=== PATIENT | female | born 1955 ===

== ENCOUNTER 2022-08-31 10:55 | Inpatient (IN) | payer MEDICARE, OTHER ==
[2022-08-31 11:23] LABS: #Monocytes 1.1 thou/uL (0.11-0.59); #Neutrophils 15.4 thou/uL (1.40-6.50); %Basophils 0.2 % (0.0-1.0); %Eosinophils 0.1 % (0.0-10.0); %Monocytes 6.3 % (0.0-10.0); %Neutrophils 90.6 % (42.0-75.0); Hemoglobin 9.4 g/dL (12.0-16.0); Mean Corpuscular HGB CONC 31.6 g/dL (32.0-36.0); Mean Corpuscular Hemoglobin 30.5 pg (27.0-31.0); Mean Corpuscular Volume 96.4 fl (78.0-98.0); Mean Platelet Volume 9.7 fL (7.4-10.4); Platelet Count 231 10x3/uL (130-400); RBC Distribution Width 15.2 % (11.5-14.5); Red Blood Cell (RBC) Count 3.08 mill/uL (4.20-5.40)
[2022-08-31 11:49] LABS: ALT (SGPT) 17 U/L (8-55); AST (SGOT) 26 U/L (5-34); Acetaminophen Less than 10 mcg/mL (10.0-30.0); Albumin 3.1 g/dL (3.4-4.8); Alcohol Less than 10.0 mg/dL (Less than 10); Alkaline Phosphatase 157 U/L (40-110); Anion Gap 17 mmol/L (10-20); BUN (Urea Nitrogen) 22 mg/dL (9.8-20.1); Bilirubin, Total 0.4 mg/dL (0.2-1.2); CK (CPK) 124 U/L (29-168); Calc. Creatinine Clearance 0 mL/min (70-130); Calcium 8.3 mg/dL (7.8-10.44); Carbon Dioxide 20 mmol/L (23-31); Chloride 96 mmol/L (98-107); Estimated GFR 92; Globulin 2.6 g/dL (2.4-3.5); Glucose 76 mg/dL (80-115); Lipase 8 U/L (8-78); Potassium 4.2 mmol/L (3.5-5.1); Protein, Total 5.7 g/dL (5.8-8.1); Salicylate Less than 8.0 mg/dL (15.0-30.0); Sodium 129 mmol/L (136-145)
[2022-08-31 13:06] LABS: Amphetamine Not Detected (NotDetected); Barbiturates Screen Not Detected (NotDetected); Benzodiazepine Screen Not Detected (NotDetected); Cocaine Metabolite Screen Not Detected (NotDetected); Methadone Not Detected (NotDetected); Methamphetamine Not Detected (NotDetected); Opiate Screen Detected (NotDetected); Oxycodone Screen Not Detected (NotDetected); Phencyclidine (PCP) Not Detected (NotDetected); THC/Cannabinoid Screen Not Detected (NotDetected); Tricyclic Screen Not Detected (NotDetected)
[2022-08-31 13:13] LABS: Bilirubin Negative (Negative); Blood, Urine 2+ (Negative); CAUTI Indications for Culture Alt mental st,lethar; Clarity Extra Turbid (Clear); Glucose, Urine (Dipstick) Normal (Negative); Ketone, Urine Negative (Negative); Leukocyte 500 Leu/uL (Negative); Nitrite 2+ (Negative); Protein, Urine (Dipstick) 50 mg/dL (Neg-Trace); Squamous Epithelial None Seen HPF (0-3); Urobilinogen 3 mg/dL (Less than 2); WBC/HPF Greater than 50 HPF (0-3); pH, Urine 6.5 (5.0-9.0)
[2022-08-31 13:14] LABS: Bacteria/HPF 4+ HPF (None Seen)
[2022-08-31 13:15] LABS: Urine Culture Reflex Yes Yes
[2022-08-31] MEDS ORDERED: cefTRIAXone (ROCEPHIN) 2 GM VIAL ONE (13:43)
[2022-08-31] MEDS ORDERED: Vancomycin 1 GM/200 ML (FROZEN) BAG ONE (13:43)
[2022-08-31] MEDS ORDERED: Acetaminophen 650 MG Suppository ONE (15:55)
[2022-08-31] MEDS ORDERED: HYDROcodone/Acetaminophen 10/325 mg Tablet PO PRN (17:10)
[2022-08-31] MEDS: Lactated Ringer's 1,000 ML IV SCH (17:48)
[2022-08-31] MEDS: Nicotine 7 MG PATCH TOP SCH (17:48)
[2022-08-31] MEDS: Ipratropium Bromide 2.5 ml Neb NEB SCH (18:54)
[2022-08-31] MEDS: Mometasone 200 MCG/Formoterol 5 MCG 120 PUFF INHALER INH SCH (18:57)
[2022-08-31] MEDS ORDERED: Lactated Ringer's 500 ML IV SCH ×2 (19:45→23:45)
[2022-08-31 20:13] LABS: Anion Gap 13 mmol/L (10-20); BUN (Urea Nitrogen) 20 mg/dL (9.8-20.1); Calc. Creatinine Clearance 53 mL/min (70-130); Calcium 8.1 mg/dL (7.8-10.44); Carbon Dioxide 19 mmol/L (23-31); Chloride 103 mmol/L (98-107); Estimated GFR 95; Glucose 69 mg/dL (80-115); Magnesium 1.3 mg/dL (1.6-2.6); Phosphorus 2.1 mg/dL (2.3-4.7); Sodium 132 mmol/L (136-145)
[2022-08-31] MEDS ORDERED: Digoxin 0.5 MG/2 ML AMP SLOW IVP SCH (20:45)
[2022-08-31] MEDS ORDERED: Potassium Chloride 20 MEQ TAB PO SCH (21:45)
[2022-08-31] MEDS ORDERED: Magnesium 2 GM/50 ML(in water) 2 GM in Premix Bag 1 BAG IVPB SCH (21:45)
[2022-08-31] MEDS ORDERED: PHOS-NAK 1 PKT PACK PO SCH (21:45)
[2022-08-31 21:47] LABS: Troponin I 0.075 ng/mL (< 0.028)
[2022-08-31] MEDS: Benzonatate 100 MG CAP PO SCH (21:57)
[2022-08-31] MEDS: Acetaminophen 325 MG TAB PO PRN (21:58)
[2022-08-31] MEDS: Apixaban 5 MG TAB PO SCH (21:58)
[2022-08-31] MEDS: traZODone HCl 50 MG TAB PO SCH (21:58)
[2022-08-31] MEDS: Famotidine 20 MG TAB PO SCH (21:58)
[2022-08-31] MEDS: Ondansetron ODT 4 MG TAB PO SCH (21:58)
[2022-08-31] MEDS: tiZANidine HCl 4 MG TAB PO SCH (21:59)
[2022-08-31] MEDS: Potassium Chloride 20 MEQ in Premix Bag 1 BAG IVPB SCH (22:06)
[2022-08-31] MEDS: Bupropion 150 MG SR TAB PO SCH (22:57)
[2022-08-31] MEDS: Morphine ER 15 MG TAB PO SCH (22:57)
[2022-08-31 23:57] VITALS: BP 76/48
[2022-09-01] MEDS: Lactated Ringer's 1,000 ML IV SCH ×4 (00:08→21:19)
[2022-09-01] MEDS ORDERED: Electrolyte Replacement Protocol 1 EACH FS PRN (00:13)
[2022-09-01] MEDS ORDERED: NOREPINEPHRINE 8 MG/250 ML-D5W 250 ML IVPB SCH (00:15)
[2022-09-01] MEDS ORDERED: Magnesium 2 GM/50 ML(in water) 2 GM in Premix Bag 1 BAG IVPB SCH (00:30)
[2022-09-01] MEDS ORDERED: Cefepime 2 GM in Sodium Chloride 0.9% 100 ML IVPB SCH (01:00)
[2022-09-01] MEDS ORDERED: Lactated Ringer's 500 ML IV SCH ×2 (01:15→02:45)
[2022-09-01] MEDS: Ipratropium Bromide 2.5 ml Neb NEB SCH ×4 (01:39→18:19)
[2022-09-01] MEDS: Potassium Chloride 20 MEQ in Premix Bag 1 BAG IVPB SCH (02:09)
[2022-09-01] MEDS ORDERED: Lactated Ringer's 1,000 ML IV SCH (02:45)
[2022-09-01 02:56] LABS: #Monocytes 0.7 thou/uL (0.11-0.59); #Neutrophils 14.1 thou/uL (1.40-6.50); %Basophils 0.2 % (0.0-1.0); %Eosinophils 0.1 % (0.0-10.0); %Lymphocytes 2.4 % (21.0-51.0); %Monocytes 4.4 % (0.0-10.0); %Neutrophils 92.4 % (42.0-75.0); Hemoglobin 7.8 g/dL (12.0-16.0); Mean Corpuscular HGB CONC 31.1 g/dL (32.0-36.0); Mean Corpuscular Hemoglobin 30.5 pg (27.0-31.0); Platelet Count 187 10x3/uL (130-400); RBC Distribution Width 15.2 % (11.5-14.5); Red Blood Cell (RBC) Count 2.56 mill/uL (4.20-5.40); White Blood Cell (WBC) Count 15.3 10x3/uL (4.8-10.8)
[2022-09-01 02:59] LABS: Manual Diff?? YES
[2022-09-01 03:31] LABS: Chloride 107 mmol/L (98-107); Potassium 4.4 mmol/L (3.5-5.1); Sodium 132 mmol/L (136-145)
[2022-09-01 03:32] LABS: Glucose 94 mg/dL (80-115)
[2022-09-01 03:34] LABS: Anion Gap 14 mmol/L (10-20); Carbon Dioxide 15 mmol/L (23-31)
[2022-09-01 03:36] LABS: BUN (Urea Nitrogen) 19 mg/dL (9.8-20.1); Calc. Creatinine Clearance 54 mL/min (70-130); Estimated GFR 96
[2022-09-01 03:38] LABS: Magnesium 2.1 mg/dL (1.6-2.6); Phosphorus 2.7 mg/dL (2.3-4.7)
[2022-09-01 04:05] LABS: Anisocytosis MARKED = >30 cells HPF (0-5); Band 21 % (5-11); Burr Cells SLIGHT = 2-5 cells HPF (0-1); Elliptocytes SLIGHT = 2-5 cells HPF (0-1); Hypochromia SLIGHT = 6-15 cells HPF (0-5); Macrocytosis MODERATE=16-30 cells HPF (0-5); Monocytes 3 % (0-10); Neutrophil 76 % (42-75); Platelet Adequacy Comment Platelets Normal; Poikilocytosis MARKED = >30 cells HPF (0-5); Polychromasia SLIGHT = 2-3 cells HPF (0-2); Tear Drops SLIGHT = 2-5 cells HPF (0-1); Total Cell Count 101
[2022-09-01 04:26] LABS: Troponin I 0.062 ng/mL (< 0.028)
[2022-09-01] MEDS: Hydrocortisone Sod Succ/PF 100 mg/2 ml Vial IVP SCH ×2 (05:47→13:43)
[2022-09-01 06:35] LABS: Troponin I 0.039 ng/mL (< 0.028)
[2022-09-01] MEDS: Mometasone 200 MCG/Formoterol 5 MCG 120 PUFF INHALER INH SCH ×2 (07:18→18:31)
[2022-09-01] MEDS: Rosuvastatin 10 MG TAB PO SCH (08:36)
[2022-09-01] MEDS: Folic Acid 1 MG TAB PO SCH (08:36)
[2022-09-01] MEDS: Famotidine 20 MG TAB PO SCH ×2 (08:36→20:21)
[2022-09-01] MEDS: Apixaban 5 MG TAB PO SCH ×2 (08:37→20:21)
[2022-09-01] MEDS: Polyethylene Glycol 3350 17 GM Packet PO SCH (08:37)
[2022-09-01] MEDS: Clopidogrel Bisulfate 75 MG TAB PO SCH (08:37)
[2022-09-01] MEDS: Ondansetron ODT 4 MG TAB PO SCH ×3 (08:37→20:22)
[2022-09-01] MEDS: Benzonatate 100 MG CAP PO SCH ×3 (08:37→20:21)
[2022-09-01] MEDS: Morphine ER 15 MG TAB PO SCH ×3 (08:42→21:20)
[2022-09-01] MEDS: tiZANidine HCl 4 MG TAB PO SCH ×3 (08:43→20:22)
[2022-09-01] MEDS ORDERED: Amlodipine 5 MG TAB PO SCH (09:00)
[2022-09-01] MEDS ORDERED: Losartan 25 MG TAB PO SCH (09:00)
[2022-09-01] MEDS: Bupropion 150 MG SR TAB PO SCH ×2 (11:00→21:19)
[2022-09-01] MEDS ORDERED: cefTRIAXone\\ROCEPHIN 1 GM in Sodium Chloride 0.9% 100 ML IVPB SCH (13:00)
[2022-09-01] MEDS: Cefepime 1 GM in Sodium Chloride 0.9% 100 ML IVPB SCH (13:15)
[2022-09-01] MEDS: methylPREDNISolone Sod Succ 40 MG VIAL IVP SCH ×2 (13:48→20:21)
[2022-09-01] MEDS: Nicotine 7 MG PATCH TOP SCH (19:14)
[2022-09-01] MEDS: Nicotine 21 MG PATCH TOP SCH (20:21)
[2022-09-01] MEDS: traZODone HCl 50 MG TAB PO SCH (21:20)
[2022-09-02] MEDS: Ipratropium Bromide 2.5 ml Neb NEB SCH ×5 (00:02→23:54)
[2022-09-02] MEDS: methylPREDNISolone Sod Succ 40 MG VIAL IVP SCH ×3 (01:16→20:33)
[2022-09-02] MEDS: Cefepime 1 GM in Sodium Chloride 0.9% 100 ML IVPB SCH (01:17)
[2022-09-02] MEDS: Diltiazem 125 MG in Sodium Chloride 0.9% 100 ML IVPB SCH ×2 (06:28→18:32)
[2022-09-02] MEDS: Mometasone 200 MCG/Formoterol 5 MCG 120 PUFF INHALER INH SCH ×2 (07:45→18:27)
[2022-09-02] MEDS: Rosuvastatin 10 MG TAB PO SCH (08:17)
[2022-09-02] MEDS: Folic Acid 1 MG TAB PO SCH (08:17)
[2022-09-02] MEDS: tiZANidine HCl 4 MG TAB PO SCH ×3 (08:17→20:36)
[2022-09-02] MEDS: Famotidine 20 MG TAB PO SCH ×2 (08:17→20:36)
[2022-09-02] MEDS: Clopidogrel Bisulfate 75 MG TAB PO SCH (08:17)
[2022-09-02] MEDS: Polyethylene Glycol 3350 17 GM Packet PO SCH (08:17)
[2022-09-02] MEDS: Morphine ER 15 MG TAB PO SCH ×3 (08:18→20:32)
[2022-09-02] MEDS: Ondansetron ODT 4 MG TAB PO SCH ×3 (08:18→20:36)
[2022-09-02] MEDS: Apixaban 5 MG TAB PO SCH (08:18)
[2022-09-02] MEDS: Benzonatate 100 MG CAP PO SCH ×3 (08:19→20:32)
[2022-09-02] MEDS: Lactated Ringer's 1,000 ML IV SCH ×2 (08:19→14:20)
[2022-09-02] MEDS: Bupropion 150 MG SR TAB PO SCH ×2 (08:31→20:32)
[2022-09-02 08:37] LABS: #Monocytes 0.3 thou/uL (0.11-0.59); %Basophils 0.1 % (0.0-1.0); %Lymphocytes 2.9 % (21.0-51.0); %Neutrophils 94.5 % (42.0-75.0); Hemoglobin 7.7 g/dL (12.0-16.0); Mean Corpuscular HGB CONC 31.6 g/dL (32.0-36.0); Mean Corpuscular Hemoglobin 30.1 pg (27.0-31.0); Mean Corpuscular Volume 95.3 fl (78.0-98.0); Mean Platelet Volume 10.5 fL (7.4-10.4); Platelet Count 198 10x3/uL (130-400); RBC Distribution Width 15.4 % (11.5-14.5); Red Blood Cell (RBC) Count 2.56 mill/uL (4.20-5.40); White Blood Cell (WBC) Count 12.7 10x3/uL (4.8-10.8)
[2022-09-02 08:56] LABS: Anion Gap 12 mmol/L (10-20); BUN (Urea Nitrogen) 15 mg/dL (9.8-20.1); Calc. Creatinine Clearance 71 mL/min (70-130); Calcium 8.5 mg/dL (7.8-10.44); Carbon Dioxide 22 mmol/L (23-31); Chloride 104 mmol/L (98-107); Estimated GFR 99; Glucose 175 mg/dL (80-115); Potassium 3.9 mmol/L (3.5-5.1); Sodium 134 mmol/L (136-145)
[2022-09-02] MEDS: cefTRIAXone\\ROCEPHIN 1 GM in Sodium Chloride 0.9% 100 ML IVPB SCH (13:11)
[2022-09-02] MEDS ORDERED: Lidocaine 1% (PF) 30 ML VIAL ONE (16:02)
[2022-09-02] MEDS: Nicotine 21 MG PATCH TOP SCH (17:36)
[2022-09-02] MEDS: traZODone HCl 50 MG TAB PO SCH (20:36)
[2022-09-02] MEDS: Diltiazem HCl SR 60 mg Capsule PO SCH (21:06)
[2022-09-03] MEDS: Lactated Ringer's 1,000 ML IV SCH (02:57)
[2022-09-03] MEDS: Senokot S 8.6-50 MG TAB PO PRN (03:42)
[2022-09-03] MEDS: Acetaminophen 325 MG TAB PO PRN (04:07)
[2022-09-03] MEDS: Diltiazem HCl SR 60 mg Capsule PO SCH ×3 (06:39→17:51)
[2022-09-03 06:52] LABS: #Monocytes 0.4 thou/uL (0.11-0.59); #Neutrophils 13.1 thou/uL (1.40-6.50); %Basophils 0.1 % (0.0-1.0); %Lymphocytes 2.7 % (21.0-51.0); %Neutrophils 93.6 % (42.0-75.0); Hemoglobin 8.2 g/dL (12.0-16.0); Mean Corpuscular HGB CONC 31.1 g/dL (32.0-36.0); Mean Corpuscular Volume 96.7 fl (78.0-98.0); Mean Platelet Volume 10.3 fL (7.4-10.4); Platelet Count 254 10x3/uL (130-400); RBC Distribution Width 15.7 % (11.5-14.5); Red Blood Cell (RBC) Count 2.73 mill/uL (4.20-5.40)
[2022-09-03 07:11] LABS: Anion Gap 12 mmol/L (10-20); BUN (Urea Nitrogen) 16 mg/dL (9.8-20.1); Calc. Creatinine Clearance 67 mL/min (70-130); Calcium 8.9 mg/dL (7.8-10.44); Carbon Dioxide 23 mmol/L (23-31); Chloride 103 mmol/L (98-107); Estimated GFR 97; Glucose 122 mg/dL (80-115); Sodium 134 mmol/L (136-145)
[2022-09-03] MEDS: Mometasone 200 MCG/Formoterol 5 MCG 120 PUFF INHALER INH SCH ×2 (07:32→19:05)
[2022-09-03] MEDS: Ipratropium Bromide 2.5 ml Neb NEB SCH ×4 (07:32→23:04)
[2022-09-03] MEDS: Folic Acid 1 MG TAB PO SCH (09:04)
[2022-09-03] MEDS: Benzonatate 100 MG CAP PO SCH ×3 (09:04→21:12)
[2022-09-03] MEDS: Bupropion 150 MG SR TAB PO SCH ×2 (09:04→21:11)
[2022-09-03] MEDS: Famotidine 20 MG TAB PO SCH ×2 (09:04→21:11)
[2022-09-03] MEDS: tiZANidine HCl 4 MG TAB PO SCH ×3 (09:04→21:11)
[2022-09-03] MEDS: Ondansetron ODT 4 MG TAB PO SCH ×3 (09:04→21:11)
[2022-09-03] MEDS: Clopidogrel Bisulfate 75 MG TAB PO SCH (09:04)
[2022-09-03] MEDS: Morphine ER 15 MG TAB PO SCH ×3 (09:05→21:13)
[2022-09-03] MEDS: Polyethylene Glycol 3350 17 GM Packet PO SCH (09:05)
[2022-09-03] MEDS: methylPREDNISolone Sod Succ 40 MG VIAL IVP SCH ×2 (09:05→21:09)
[2022-09-03] MEDS ORDERED: Apixaban 5 MG TAB PO SCH (09:30)
[2022-09-03] MEDS: Rosuvastatin 10 MG TAB PO SCH (09:51)
[2022-09-03] MEDS: Diltiazem 125 MG in Sodium Chloride 0.9% 100 ML IVPB SCH (10:10)
[2022-09-03 13:01] VITALS: BMI 19.1
[2022-09-03 13:20] LABS: Lactic Acid 2.1 mmol/L (0.5-2.2)
[2022-09-03] MEDS: cefTRIAXone\\ROCEPHIN 1 GM in Sodium Chloride 0.9% 100 ML IVPB SCH (14:24)
[2022-09-03] MEDS: Digoxin 0.5 MG/2 ML AMP SLOW IVP SCH ×2 (15:23→21:13)
[2022-09-03] MEDS: Nicotine 21 MG PATCH TOP SCH (17:51)
[2022-09-03] MEDS: traZODone HCl 50 MG TAB PO SCH (21:11)
[2022-09-04] MEDS: Diltiazem HCl SR 60 mg Capsule PO SCH ×4 (00:21→18:10)
[2022-09-04] MEDS: Diltiazem 125 MG in Sodium Chloride 0.9% 100 ML IVPB SCH (01:47)
[2022-09-04] MEDS: Digoxin 0.5 MG/2 ML AMP SLOW IVP SCH (03:24)
[2022-09-04 06:42] LABS: #Monocytes 0.5 thou/uL (0.11-0.59); #Neutrophils 11.1 thou/uL (1.40-6.50); %Basophils 0.2 % (0.0-1.0); %Lymphocytes 4.2 % (21.0-51.0); %Monocytes 3.7 % (0.0-10.0); %Neutrophils 90.6 % (42.0-75.0); Hemoglobin 8.6 g/dL (12.0-16.0); Mean Corpuscular HGB CONC 30.8 g/dL (32.0-36.0); Mean Corpuscular Hemoglobin 29.2 pg (27.0-31.0); Mean Corpuscular Volume 94.6 fl (78.0-98.0); Mean Platelet Volume 9.9 fL (7.4-10.4); Platelet Count 321 10x3/uL (130-400); RBC Distribution Width 15.8 % (11.5-14.5); Red Blood Cell (RBC) Count 2.95 mill/uL (4.20-5.40); White Blood Cell (WBC) Count 12.3 10x3/uL (4.8-10.8)
[2022-09-04] MEDS: Ipratropium Bromide 2.5 ml Neb NEB SCH ×4 (06:44→23:52)
[2022-09-04] MEDS: Mometasone 200 MCG/Formoterol 5 MCG 120 PUFF INHALER INH SCH ×2 (06:44→18:42)
[2022-09-04 07:04] LABS: Anion Gap 16 mmol/L (10-20); BUN (Urea Nitrogen) 15 mg/dL (9.8-20.1); Calc. Creatinine Clearance 67 mL/min (70-130); Calcium 9.1 mg/dL (7.8-10.44); Carbon Dioxide 24 mmol/L (23-31); Chloride 104 mmol/L (98-107); Estimated GFR 97; Glucose 133 mg/dL (80-115); Potassium 4.6 mmol/L (3.5-5.1); Sodium 139 mmol/L (136-145)
[2022-09-04] MEDS: Morphine ER 15 MG TAB PO SCH ×3 (08:13→20:53)
[2022-09-04] MEDS: Benzonatate 100 MG CAP PO SCH ×3 (08:13→20:54)
[2022-09-04] MEDS: Apixaban 5 MG TAB PO SCH ×2 (08:14→20:54)
[2022-09-04] MEDS: Ondansetron ODT 4 MG TAB PO SCH ×3 (08:14→20:53)
[2022-09-04] MEDS: Clopidogrel Bisulfate 75 MG TAB PO SCH (08:14)
[2022-09-04] MEDS: Famotidine 20 MG TAB PO SCH ×2 (08:14→20:53)
[2022-09-04] MEDS: Folic Acid 1 MG TAB PO SCH (08:14)
[2022-09-04] MEDS: Rosuvastatin 10 MG TAB PO SCH (08:14)
[2022-09-04] MEDS: tiZANidine HCl 4 MG TAB PO SCH ×3 (08:14→20:54)
[2022-09-04] MEDS: methylPREDNISolone Sod Succ 40 MG VIAL IVP SCH ×2 (08:15→20:55)
[2022-09-04] MEDS: Bupropion 150 MG SR TAB PO SCH ×2 (08:15→20:59)
[2022-09-04] MEDS: Polyethylene Glycol 3350 17 GM Packet PO SCH (08:16)
[2022-09-04] MEDS ORDERED: Furosemide 20 MG TAB PO SCH (09:00)
[2022-09-04] MEDS: cefTRIAXone\\ROCEPHIN 1 GM in Sodium Chloride 0.9% 100 ML IVPB SCH (12:20)
[2022-09-04] MEDS: Nicotine 21 MG PATCH TOP SCH (18:10)
[2022-09-04] MEDS: traZODone HCl 50 MG TAB PO SCH (20:54)
[2022-09-05] MEDS: Diltiazem HCl SR 60 mg Capsule PO SCH ×5 (00:06→20:50)
[2022-09-05 05:57] LABS: #Monocytes 0.7 thou/uL (0.11-0.59); #Neutrophils 9.5 thou/uL (1.40-6.50); %Basophils 0.2 % (0.0-1.0); %Lymphocytes 6.7 % (21.0-51.0); %Monocytes 6.3 % (0.0-10.0); %Neutrophils 83.9 % (42.0-75.0); Hemoglobin 8.7 g/dL (12.0-16.0); Mean Corpuscular HGB CONC 31.4 g/dL (32.0-36.0); Mean Corpuscular Hemoglobin 29.4 pg (27.0-31.0); Mean Corpuscular Volume 93.6 fl (78.0-98.0); Mean Platelet Volume 9.6 fL (7.4-10.4); Platelet Count 368 10x3/uL (130-400); RBC Distribution Width 15.8 % (11.5-14.5); Red Blood Cell (RBC) Count 2.96 mill/uL (4.20-5.40); White Blood Cell (WBC) Count 11.3 10x3/uL (4.8-10.8)
[2022-09-05 06:49] LABS: Anion Gap 12 mmol/L (10-20); BUN (Urea Nitrogen) 14 mg/dL (9.8-20.1); Calc. Creatinine Clearance 73 mL/min (70-130); Calcium 8.8 mg/dL (7.8-10.44); Carbon Dioxide 27 mmol/L (23-31); Chloride 101 mmol/L (98-107); Estimated GFR 99; Glucose 153 mg/dL (80-115); Potassium 4.4 mmol/L (3.5-5.1); Sodium 136 mmol/L (136-145)
[2022-09-05] MEDS: Ipratropium Bromide 2.5 ml Neb NEB SCH ×3 (07:08→19:24)
[2022-09-05] MEDS: Mometasone 200 MCG/Formoterol 5 MCG 120 PUFF INHALER INH SCH ×2 (07:11→19:26)
[2022-09-05] MEDS ORDERED: Furosemide 20 MG TAB PO SCH (07:15)
[2022-09-05] MEDS: Benzonatate 100 MG CAP PO SCH ×3 (08:08→20:51)
[2022-09-05] MEDS: Apixaban 5 MG TAB PO SCH ×2 (08:08→20:50)
[2022-09-05] MEDS: Famotidine 20 MG TAB PO SCH ×2 (08:08→20:50)
[2022-09-05] MEDS: Polyethylene Glycol 3350 17 GM Packet PO SCH (08:08)
[2022-09-05] MEDS: Clopidogrel Bisulfate 75 MG TAB PO SCH (08:08)
[2022-09-05] MEDS: methylPREDNISolone Sod Succ 40 MG VIAL IVP SCH (08:08)
[2022-09-05] MEDS: Ondansetron ODT 4 MG TAB PO SCH ×3 (08:08→20:51)
[2022-09-05] MEDS: Folic Acid 1 MG TAB PO SCH (08:09)
[2022-09-05] MEDS: Rosuvastatin 10 MG TAB PO SCH (08:09)
[2022-09-05] MEDS: Morphine ER 15 MG TAB PO SCH ×3 (08:09→20:51)
[2022-09-05] MEDS: tiZANidine HCl 4 MG TAB PO SCH ×3 (08:09→20:50)
[2022-09-05] MEDS: Bupropion 150 MG SR TAB PO SCH ×2 (08:09→20:50)
[2022-09-05] MEDS: cefTRIAXone\\ROCEPHIN 1 GM in Sodium Chloride 0.9% 100 ML IVPB SCH (12:07)
[2022-09-05] MEDS: Diltiazem 125 MG in Sodium Chloride 0.9% 100 ML IVPB SCH (14:34)
[2022-09-05] MEDS ORDERED: Furosemide 20 MG/2 ML VIAL SLOW IVP SCH (16:30)
[2022-09-05] MEDS ORDERED: Digoxin 0.25 MG TAB PO SCH (16:30)
[2022-09-05] MEDS ORDERED: Amlodipine 5 MG TAB PO SCH (16:30)
[2022-09-05] MEDS: Carvedilol 6.25 MG TAB PO SCH (17:09)
[2022-09-05] MEDS: Nicotine 21 MG PATCH TOP SCH (17:13)
[2022-09-05] MEDS: traZODone HCl 50 MG TAB PO SCH (20:51)
[2022-09-06] MEDS: Ipratropium Bromide 2.5 ml Neb NEB SCH ×5 (00:57→23:04)
[2022-09-06] MEDS: Diltiazem 125 MG in Sodium Chloride 0.9% 100 ML IVPB SCH ×2 (02:03→21:11)
[2022-09-06 03:57] LABS: #Monocytes 1.1 thou/uL (0.11-0.59); #Neutrophils 10.3 thou/uL (1.40-6.50); %Basophils 0.2 % (0.0-1.0); %Eosinophils 0.2 % (0.0-10.0); %Lymphocytes 8.9 % (21.0-51.0); %Monocytes 8.5 % (0.0-10.0); %Neutrophils 78.3 % (42.0-75.0); Hemoglobin 8.7 g/dL (12.0-16.0); Mean Corpuscular HGB CONC 31.1 g/dL (32.0-36.0); Mean Corpuscular Hemoglobin 29.5 pg (27.0-31.0); Mean Corpuscular Volume 94.9 fl (78.0-98.0); Mean Platelet Volume 9.6 fL (7.4-10.4); Platelet Count 388 10x3/uL (130-400); RBC Distribution Width 16.3 % (11.5-14.5); Red Blood Cell (RBC) Count 2.95 mill/uL (4.20-5.40); White Blood Cell (WBC) Count 13.2 10x3/uL (4.8-10.8)
[2022-09-06 04:26] LABS: Anion Gap 12 mmol/L (10-20); BUN (Urea Nitrogen) 16 mg/dL (9.8-20.1); Calc. Creatinine Clearance 75 mL/min (70-130); Calcium 8.7 mg/dL (7.8-10.44); Carbon Dioxide 27 mmol/L (23-31); Chloride 100 mmol/L (98-107); Estimated GFR 100; Glucose 112 mg/dL (80-115); Potassium 4.1 mmol/L (3.5-5.1); Sodium 135 mmol/L (136-145)
[2022-09-06] MEDS: Diltiazem HCl SR 60 mg Capsule PO SCH (05:23)
[2022-09-06] MEDS: Mometasone 200 MCG/Formoterol 5 MCG 120 PUFF INHALER INH SCH ×2 (07:15→18:34)
[2022-09-06] MEDS ORDERED: Amlodipine 5 MG TAB PO SCH (09:00)
[2022-09-06] MEDS: Morphine ER 15 MG TAB PO SCH ×3 (09:44→21:06)
[2022-09-06] MEDS: Famotidine 20 MG TAB PO SCH ×2 (09:44→21:05)
[2022-09-06] MEDS: tiZANidine HCl 4 MG TAB PO SCH ×3 (09:44→21:06)
[2022-09-06] MEDS: Cefdinir 300 MG CAP PO SCH (09:44)
[2022-09-06] MEDS: Clopidogrel Bisulfate 75 MG TAB PO SCH (09:44)
[2022-09-06] MEDS: predniSONE 20 MG TAB PO SCH (09:44)
[2022-09-06] MEDS: Bupropion 150 MG SR TAB PO SCH ×2 (09:45→21:06)
[2022-09-06] MEDS: Benzonatate 100 MG CAP PO SCH ×3 (09:45→21:06)
[2022-09-06] MEDS: Rosuvastatin 10 MG TAB PO SCH (09:45)
[2022-09-06] MEDS: Folic Acid 1 MG TAB PO SCH (09:45)
[2022-09-06] MEDS: Apixaban 5 MG TAB PO SCH ×2 (09:45→21:06)
[2022-09-06] MEDS: Polyethylene Glycol 3350 17 GM Packet PO SCH (09:45)
[2022-09-06] MEDS: Carvedilol 6.25 MG TAB PO SCH ×2 (09:45→17:36)
[2022-09-06] MEDS: Ondansetron ODT 4 MG TAB PO SCH ×3 (09:45→21:06)
[2022-09-06] MEDS: Senokot S 8.6-50 MG TAB PO PRN ×2 (09:52→21:05)
[2022-09-06] MEDS: Nicotine 21 MG PATCH TOP SCH (17:37)
[2022-09-06] MEDS: traZODone HCl 50 MG TAB PO SCH (21:05)
[2022-09-06] MEDS: busPIRone HCl 5 MG TAB PO SCH (21:06)
[2022-09-07 03:56] LABS: Hemoglobin 8.9 g/dL (12.0-16.0); Mean Corpuscular HGB CONC 30.7 g/dL (32.0-36.0); Mean Corpuscular Hemoglobin 28.9 pg (27.0-31.0); Mean Corpuscular Volume 94.2 fl (78.0-98.0); Mean Platelet Volume 9.9 fL (7.4-10.4); Platelet Count 380 10x3/uL (130-400); RBC Distribution Width 16.5 % (11.5-14.5); Red Blood Cell (RBC) Count 3.08 mill/uL (4.20-5.40); White Blood Cell (WBC) Count 13.1 10x3/uL (4.8-10.8)
[2022-09-07 04:18] LABS: Anion Gap 15 mmol/L (10-20); BUN (Urea Nitrogen) 18 mg/dL (9.8-20.1); Calc. Creatinine Clearance 74 mL/min (70-130); Calcium 8.1 mg/dL (7.8-10.44); Carbon Dioxide 23 mmol/L (23-31); Chloride 102 mmol/L (98-107); Estimated GFR 100; Glucose 134 mg/dL (80-115); Potassium 3.9 mmol/L (3.5-5.1); Sodium 136 mmol/L (136-145)
[2022-09-07 05:12] LABS: Delete Auto Diff?? YES; Manual Diff?? YES
[2022-09-07] MEDS: Ipratropium Bromide 2.5 ml Neb NEB SCH ×4 (06:53→23:22)
[2022-09-07] MEDS: Mometasone 200 MCG/Formoterol 5 MCG 120 PUFF INHALER INH SCH ×2 (06:55→18:56)
[2022-09-07 06:57] LABS: Anisocytosis SLIGHT = 6-15 cells HPF (0-5); Band 2 % (5-11); Burr Cells SLIGHT = 2-5 cells HPF (0-1); CellaVision Operator ID LAB.JMM; Lymphocytes 1 % (21-51); Macrocytosis SLIGHT = 6-15 cells HPF (0-5); Metamyelocyte 2 % (0-0); Monocytes 4 % (0-10); Myelocyte 3 % (0-0); Neutrophil 88 % (42-75); Platelet Adequacy Comment Platelets Normal; Poikilocytosis SLIGHT = 6-15 cells HPF (0-5); Polychromasia MODERATE = 3-4 cells HPF (0-2); Total Cell Count 100
[2022-09-07] MEDS: Cefdinir 300 MG CAP PO SCH (10:25)
[2022-09-07] MEDS: Rosuvastatin 10 MG TAB PO SCH (10:26)
[2022-09-07] MEDS: Morphine ER 15 MG TAB PO SCH ×3 (10:26→20:48)
[2022-09-07] MEDS: Ondansetron ODT 4 MG TAB PO SCH ×3 (10:26→20:47)
[2022-09-07] MEDS: Apixaban 5 MG TAB PO SCH ×2 (10:26→20:48)
[2022-09-07] MEDS: Benzonatate 100 MG CAP PO SCH ×3 (10:27→20:49)
[2022-09-07] MEDS: Polyethylene Glycol 3350 17 GM Packet PO SCH (10:27)
[2022-09-07] MEDS: Famotidine 20 MG TAB PO SCH ×2 (10:27→20:48)
[2022-09-07] MEDS: Carvedilol 6.25 MG TAB PO SCH ×2 (10:27→16:25)
[2022-09-07] MEDS: Folic Acid 1 MG TAB PO SCH (10:27)
[2022-09-07] MEDS: busPIRone HCl 5 MG TAB PO SCH ×2 (10:27→20:48)
[2022-09-07] MEDS: tiZANidine HCl 4 MG TAB PO SCH ×3 (10:27→20:48)
[2022-09-07] MEDS: Clopidogrel Bisulfate 75 MG TAB PO SCH (10:27)
[2022-09-07] MEDS: predniSONE 20 MG TAB PO SCH (10:27)
[2022-09-07] MEDS: Bupropion 150 MG SR TAB PO SCH ×2 (10:28→20:47)
[2022-09-07] MEDS: Nicotine 21 MG PATCH TOP SCH (16:26)
[2022-09-07] MEDS: traZODone HCl 50 MG TAB PO SCH (20:48)
[2022-09-08 04:15] LABS: Hemoglobin 9.2 g/dL (12.0-16.0); Mean Corpuscular Hemoglobin 29.2 pg (27.0-31.0); Mean Corpuscular Volume 94.3 fl (78.0-98.0); Mean Platelet Volume 9.7 fL (7.4-10.4); Platelet Count 400 10x3/uL (130-400); RBC Distribution Width 16.6 % (11.5-14.5); Red Blood Cell (RBC) Count 3.15 mill/uL (4.20-5.40); White Blood Cell (WBC) Count 12.5 10x3/uL (4.8-10.8)
[2022-09-08 04:25] LABS: Delete Auto Diff?? YES; Manual Diff?? YES
[2022-09-08 04:38] LABS: Anion Gap 11 mmol/L (10-20); BUN (Urea Nitrogen) 14 mg/dL (9.8-20.1); Calc. Creatinine Clearance 79 mL/min (70-130); Calcium 8.1 mg/dL (7.8-10.44); Carbon Dioxide 26 mmol/L (23-31); Chloride 100 mmol/L (98-107); Estimated GFR 101; Glucose 95 mg/dL (80-115); Sodium 133 mmol/L (136-145)
[2022-09-08 05:18] LABS: Anisocytosis SLIGHT = 6-15 cells HPF (0-5); CellaVision Operator ID lab.abc; Eosinophils 2 % (0-10); Hypochromia SLIGHT = 6-15 cells HPF (0-5); Lymphocytes 3 % (21-51); Monocytes 9 % (0-10); Myelocyte 1 % (0-0); Neutrophil 85 % (42-75); Platelet Adequacy Comment Platelets Normal; Polychromasia SLIGHT = 2-3 cells HPF (0-2); Total Cell Count 100
[2022-09-08] MEDS: Mometasone 200 MCG/Formoterol 5 MCG 120 PUFF INHALER INH SCH ×2 (07:46→18:41)
[2022-09-08] MEDS: Ipratropium Bromide 2.5 ml Neb NEB SCH ×3 (07:49→18:40)
[2022-09-08] MEDS ORDERED: Digoxin 0.5 MG/2 ML AMP SLOW IVP SCH (09:00)
[2022-09-08] MEDS: Cefdinir 300 MG CAP PO SCH (09:27)
[2022-09-08] MEDS: tiZANidine HCl 4 MG TAB PO SCH ×3 (09:28→20:26)
[2022-09-08] MEDS: Folic Acid 1 MG TAB PO SCH (09:28)
[2022-09-08] MEDS: Clopidogrel Bisulfate 75 MG TAB PO SCH (09:28)
[2022-09-08] MEDS: Apixaban 5 MG TAB PO SCH ×2 (09:28→20:26)
[2022-09-08] MEDS: Polyethylene Glycol 3350 17 GM Packet PO SCH (09:28)
[2022-09-08] MEDS: Flecainide 50 MG TAB PO SCH ×2 (09:28→20:26)
[2022-09-08] MEDS: Famotidine 20 MG TAB PO SCH ×2 (09:29→20:26)
[2022-09-08] MEDS: Ondansetron ODT 4 MG TAB PO SCH ×3 (09:29→20:26)
[2022-09-08] MEDS: Rosuvastatin 10 MG TAB PO SCH (09:29)
[2022-09-08] MEDS: busPIRone HCl 5 MG TAB PO SCH ×2 (09:29→20:25)
[2022-09-08] MEDS: predniSONE 20 MG TAB PO SCH (09:29)
[2022-09-08] MEDS: Metoprolol Tartrate 25 MG TAB PO SCH ×2 (09:29→20:26)
[2022-09-08] MEDS: Morphine ER 15 MG TAB PO SCH ×3 (09:30→20:26)
[2022-09-08] MEDS: Benzonatate 100 MG CAP PO SCH ×3 (09:30→20:26)
[2022-09-08] MEDS: Bupropion 150 MG SR TAB PO SCH ×2 (09:35→20:25)
[2022-09-08] MEDS ORDERED: Furosemide 20 MG/2 ML VIAL SLOW IVP SCH (15:00)
[2022-09-08] MEDS: Nicotine 21 MG PATCH TOP SCH (17:55)
[2022-09-08] MEDS: traZODone HCl 50 MG TAB PO SCH (20:26)
[2022-09-08] MEDS ORDERED: traZODone HCl 50 MG TAB PO SCH (21:00)
[2022-09-09] MEDS: Ipratropium Bromide 2.5 ml Neb NEB SCH ×3 (02:00→14:16)
[2022-09-09 03:49] LABS: Hemoglobin 8.7 g/dL (12.0-16.0); Mean Corpuscular HGB CONC 29.8 g/dL (32.0-36.0); Mean Corpuscular Hemoglobin 29.2 pg (27.0-31.0); Mean Platelet Volume 9.7 fL (7.4-10.4); Platelet Count 394 10x3/uL (130-400); RBC Distribution Width 16.3 % (11.5-14.5); Red Blood Cell (RBC) Count 2.98 mill/uL (4.20-5.40); White Blood Cell (WBC) Count 8.6 10x3/uL (4.8-10.8)
[2022-09-09 04:11] LABS: Anion Gap 13 mmol/L (10-20); BUN (Urea Nitrogen) 14 mg/dL (9.8-20.1); Calc. Creatinine Clearance 73 mL/min (70-130); Calcium 8.9 mg/dL (7.8-10.44); Carbon Dioxide 28 mmol/L (23-31); Chloride 99 mmol/L (98-107); Estimated GFR 99; Glucose 122 mg/dL (80-115); Sodium 136 mmol/L (136-145)
[2022-09-09 05:01] LABS: Delete Auto Diff?? YES; Manual Diff?? YES
[2022-09-09 06:02] LABS: Anisocytosis SLIGHT = 6-15 cells HPF (0-5); Band 4 % (5-11); CellaVision Operator ID LAB.JMM; Eosinophils 1 % (0-10); Hypochromia SLIGHT = 6-15 cells HPF (0-5); Large Platelets 4.4 % (0-5); Lymphocytes 11 % (21-51); Monocytes 4 % (0-10); Myelocyte 2 % (0-0); Neutrophil 78 % (42-75); Platelet Adequacy Comment Platelets Normal; Polychromasia SLIGHT = 2-3 cells HPF (0-2); Total Cell Count 114
[2022-09-09 07:47] VITALS: TEMP 97.5
[2022-09-09] MEDS: Mometasone 200 MCG/Formoterol 5 MCG 120 PUFF INHALER INH SCH (07:59)
[2022-09-09] MEDS: Polyethylene Glycol 3350 17 GM Packet PO SCH (09:01)
[2022-09-09] MEDS: busPIRone HCl 5 MG TAB PO SCH (09:02)
[2022-09-09] MEDS: predniSONE 20 MG TAB PO SCH (09:02)
[2022-09-09] MEDS: tiZANidine HCl 4 MG TAB PO SCH ×2 (09:02→14:32)
[2022-09-09] MEDS: Famotidine 20 MG TAB PO SCH (09:02)
[2022-09-09] MEDS: Metoprolol Tartrate 25 MG TAB PO SCH (09:02)
[2022-09-09] MEDS: Bupropion 150 MG SR TAB PO SCH (09:02)
[2022-09-09] MEDS: Cefdinir 300 MG CAP PO SCH (09:03)
[2022-09-09] MEDS: Apixaban 5 MG TAB PO SCH (09:03)
[2022-09-09] MEDS: Ondansetron ODT 4 MG TAB PO SCH ×2 (09:03→14:32)
[2022-09-09] MEDS: Morphine ER 15 MG TAB PO SCH ×2 (09:03→14:30)
[2022-09-09] MEDS: Rosuvastatin 10 MG TAB PO SCH (09:03)
[2022-09-09] MEDS: Benzonatate 100 MG CAP PO SCH ×2 (09:04→14:30)
[2022-09-09] MEDS: Clopidogrel Bisulfate 75 MG TAB PO SCH (09:04)
[2022-09-09] MEDS: Flecainide 50 MG TAB PO SCH (09:04)
[2022-09-09] MEDS: Folic Acid 1 MG TAB PO SCH (09:04)
[2022-09-09] MEDS ORDERED: Furosemide 20 MG TAB PO SCH (10:00)
== END 2022-09-09 17:04 | disposition hospice, home (50) | DRG 871 ==
LOC: ERS 10:55 → ERHOLD 14:10 → 2NO 17:29 → CCU 09-01 00:42 → IMCU/EMU 09-03 23:51
PROVIDERS: ADMIT Family Medicine; ATTEND Family Medicine
PROC: 3E03329 Introduction of Other Anti-infective into Peripheral Vein, Percutaneous Approach (ICD-10-PCS; 2022-08-31)
PROC: 3E033XZ Introduction of Vasopressor into Peripheral Vein, Percutaneous Approach (ICD-10-PCS; 2022-09-01)
PROC: 0JPT0WZ Removal of Totally Implantable Vascular Access Device from Trunk Subcutaneous Tissue and Fascia, Open Approach (ICD-10-PCS; principal; 2022-09-02)
DX: A41.51 Sepsis due to Escherichia coli [E. coli] (principal); R65.21 Severe sepsis with septic shock; T80.218A Other infection due to central venous catheter, initial encounter; N39.0 Urinary tract infection, site not specified; C34.90 Malignant neoplasm of unspecified part of unspecified bronchus or lung; E87.1 Hypo-osmolality and hyponatremia; C85.90 Non-Hodgkin lymphoma, unspecified, unspecified site; E87.20 Acidosis, unspecified; E44.0 Moderate protein-calorie malnutrition; J96.10 Chronic respiratory failure, unspecified whether with hypoxia or hypercapnia; Z68.1 Body mass index [BMI] 19.9 or less, adult; Z51.5 Encounter for palliative care; Z66 Do not resuscitate; G51.0 Bell's palsy; R26.81 Unsteadiness on feet; G89.29 Other chronic pain; G43.909 Migraine, unspecified, not intractable, without status migrainosus; I73.9 Peripheral vascular disease, unspecified; F41.9 Anxiety disorder, unspecified; E87.6 Hypokalemia; R60.0 Localized edema; F19.10 Other psychoactive substance abuse, uncomplicated; F17.210 Nicotine dependence, cigarettes, uncomplicated; R77.8 Other specified abnormalities of plasma proteins; D64.9 Anemia, unspecified; K59.03 Drug induced constipation; T40.2X5A Adverse effect of other opioids, initial encounter; I48.0 Paroxysmal atrial fibrillation; Z88.8 Allergy status to other drugs, medicaments and biological substances; Z90.49 Acquired absence of other specified parts of digestive tract; Z90.710 Acquired absence of both cervix and uterus; Z91.040 Latex allergy status; Z98.890 Other specified postprocedural states; Z79.891 Long term (current) use of opiate analgesic; Z92.21 Personal history of antineoplastic chemotherapy; Z80.3 Family history of malignant neoplasm of breast; Z83.3 Family history of diabetes mellitus; Z82.3 Family history of stroke; Z82.49 Family history of ischemic heart disease and other diseases of the circulatory system; F41.1 Generalized anxiety disorder; Y84.8 Other medical procedures as the cause of abnormal reaction of the patient, or of later complication, without mention of misadventure at the time of the procedure
CPT/HCPCS: 36415; 36416; 70450; 71045; 80048; 80053; 80306; 80307; 81001; 82140; 82533; 82550; 82570; 83605; 83690; 83735; 83930; 83935; 84100; 84145; 84300; 84484; 85025; 86850; 86900; 86901; 87040; 87071; 87077; 87086; 87149; 87186; 93005; 93010; 94640; 96361; 96365; 96367; J0692; J0696; J1160; J1720; J1940; J2001; J2920; J3370-JW; J3475; J3480; J3490; J7120; J7512; Q0162

== ENCOUNTER 2022-09-23 16:40 | Inpatient (IN) | payer MEDICARE, OTHER ==
[2022-09-23 18:15] LABS: Bacteria/HPF 2+ HPF (None Seen); Bilirubin Negative (Negative); Blood, Urine Negative (Negative); CAUTI Indications for Culture Alt mental st,lethar; Clarity Turbid (Clear); Glucose, Urine (Dipstick) Normal (Negative); Ketone, Urine Negative (Negative); Leukocyte 250 Leu/uL (Negative); Nitrite 2+ (Negative); Protein, Urine (Dipstick) Negative (Neg-Trace); RBC/HPF 0-3 HPF (0-3); Specific Gravity, Urine 1.017 (1.002-1.036); Squamous Epithelial None Seen HPF (0-3); Urobilinogen Normal mg/dL (Less than 2); WBC/HPF 21-50 HPF (0-3); pH, Urine 5.5 (5.0-9.0)
[2022-09-23 18:17] LABS: Urine Culture Reflex Yes Yes
[2022-09-23 18:24] LABS: Hematocrit 29.7 % (36.0-47.0); Mean Corpuscular HGB CONC 30.3 g/dL (32.0-36.0); Mean Corpuscular Hemoglobin 29.6 pg (27.0-31.0); Mean Corpuscular Volume 97.7 fl (78.0-98.0); Mean Platelet Volume 9.9 fL (7.4-10.4); Platelet Count 264 10x3/uL (130-400); RBC Distribution Width 18.2 % (11.5-14.5); Red Blood Cell (RBC) Count 3.04 mill/uL (4.20-5.40); White Blood Cell (WBC) Count 14.8 10x3/uL (4.8-10.8)
[2022-09-23 18:25] LABS: Delete Auto Diff?? YES; Manual Diff?? YES
[2022-09-23] MEDS ORDERED: cefTRIAXone (ROCEPHIN) 1 GM VIAL ONE (18:40)
[2022-09-23 18:44] LABS: SARS-CoV-2 NAA Rapid Test Not Detected (NotDetected)
[2022-09-23 18:46] LABS: ALT (SGPT) 20 U/L (8-55); AST (SGOT) 13 U/L (5-34); Albumin 3.5 g/dL (3.4-4.8); Alkaline Phosphatase 141 U/L (40-110); Anion Gap 15 mmol/L (10-20); BUN (Urea Nitrogen) 28 mg/dL (9.8-20.1); Bilirubin, Total 0.4 mg/dL (0.2-1.2); Calc. Creatinine Clearance 0 mL/min (70-130); Carbon Dioxide 22 mmol/L (23-31); Chloride 99 mmol/L (98-107); Estimated GFR 82; Globulin 2.8 g/dL (2.4-3.5); Glucose 98 mg/dL (80-115); Potassium 3.5 mmol/L (3.5-5.1); Protein, Total 6.3 g/dL (5.8-8.1); Sodium 132 mmol/L (136-145)
[2022-09-23 18:49] LABS: Anisocytosis SLIGHT = 6-15 cells HPF (0-5); Band 33 % (5-11); Burr Cells SLIGHT = 2-5 cells HPF (0-1); CellaVision Operator ID LAB.MJL; Lymphocytes 2 % (21-51); Monocytes 2 % (0-10); Neutrophil 63 % (42-75); Ovalocytes SLIGHT = 2-5 cells HPF (0-1); Platelet Adequacy Comment Platelets Normal; Poikilocytosis SLIGHT = 6-15 cells HPF (0-5); Polychromasia MODERATE = 3-4 cells HPF (0-2); Tear Drops SLIGHT = 2-5 cells HPF (0-1); Total Cell Count 100
[2022-09-23] MEDS ORDERED: Azithromycin 500 MG VIAL ONE (19:09)
[2022-09-23] MEDS ORDERED: Senokot S 8.6-50 MG TAB PO PRN ×2 (21:33→22:17)
[2022-09-23] MEDS ORDERED: Ondansetron ODT 4 MG TAB PO PRN (21:33)
[2022-09-23] MEDS ORDERED: Acetaminophen 325 MG TAB PO PRN (21:33)
[2022-09-23] MEDS ORDERED: Bisacodyl 5 MG TAB PO PRN (21:33)
[2022-09-24] MEDS: Ipratropium Bromide 2.5 ml Neb NEB SCH ×5 (00:13→23:56)
[2022-09-24 02:51] VITALS: BMI 15.6
[2022-09-24] MEDS: HYDROcodone/Acetaminophen 10/325 mg Tablet PO PRN ×2 (05:09→22:39)
[2022-09-24 05:43] LABS: #Monocytes 0.3 thou/uL (0.11-0.59); #Neutrophils 12.8 thou/uL (1.40-6.50); %Basophils 0.3 % (0.0-1.0); %Eosinophils 0.1 % (0.0-10.0); %Lymphocytes 3.3 % (21.0-51.0); %Monocytes 2.4 % (0.0-10.0); %Neutrophils 92.1 % (42.0-75.0); Hematocrit 32.3 % (36.0-47.0); Hemoglobin 9.4 g/dL (12.0-16.0); Mean Corpuscular HGB CONC 29.1 g/dL (32.0-36.0); Mean Corpuscular Hemoglobin 29.5 pg (27.0-31.0); Mean Platelet Volume 10.5 fL (7.4-10.4); Platelet Count 239 10x3/uL (130-400); Red Blood Cell (RBC) Count 3.19 mill/uL (4.20-5.40); White Blood Cell (WBC) Count 13.9 10x3/uL (4.8-10.8)
[2022-09-24 05:47] LABS: Mean Corpuscular Volume 101.3 fl (78.0-98.0)
[2022-09-24 06:11] LABS: ALT (SGPT) 18 U/L (8-55); AST (SGOT) 18 U/L (5-34); Albumin 3.1 g/dL (3.4-4.8); Alkaline Phosphatase 141 U/L (40-110); Anion Gap 16 mmol/L (10-20); BUN (Urea Nitrogen) 23 mg/dL (9.8-20.1); Bilirubin, Total 0.5 mg/dL (0.2-1.2); Calc. Creatinine Clearance 54 mL/min (70-130); Calcium 8.8 mg/dL (7.8-10.44); Carbon Dioxide 16 mmol/L (23-31); Chloride 104 mmol/L (98-107); Estimated GFR 96; Globulin 2.6 g/dL (2.4-3.5); Glucose 55 mg/dL (80-115); Protein, Total 5.7 g/dL (5.8-8.1); Sodium 132 mmol/L (136-145)
[2022-09-24] MEDS: Mometasone 200 MCG/Formoterol 5 MCG 120 PUFF INHALER INH SCH ×2 (07:19→19:29)
[2022-09-24] MEDS ORDERED: Dextrose 5% in Water 1,000 ML IV PRN (08:54)
[2022-09-24] MEDS ORDERED: Glucagon 1 MG/ML KIT IM PRN (08:54)
[2022-09-24] MEDS ORDERED: Dextrose 50% Abboject 50 ML SYRINGE SLOW IVP PRN (08:54)
[2022-09-24] MEDS ORDERED: Ondansetron ODT 4 MG TAB PO SCH (09:00)
[2022-09-24] MEDS ORDERED: Polyethylene Glycol 3350 17 GM Packet PO SCH (09:00)
[2022-09-24] MEDS: predniSONE 20 MG TAB PO SCH (09:52)
[2022-09-24] MEDS: busPIRone HCl 5 MG TAB PO SCH ×2 (09:52→21:10)
[2022-09-24] MEDS: Benzonatate 100 MG CAP PO SCH ×3 (09:53→21:10)
[2022-09-24] MEDS: Morphine ER 15 MG TAB PO SCH ×2 (09:53→18:01)
[2022-09-24] MEDS: Losartan 25 MG TAB PO SCH (09:54)
[2022-09-24] MEDS: Apixaban 5 MG TAB PO SCH ×2 (09:54→21:10)
[2022-09-24] MEDS: tiZANidine HCl 4 MG TAB PO SCH (09:54)
[2022-09-24] MEDS: Amlodipine 5 MG TAB PO SCH (09:55)
[2022-09-24] MEDS: Folic Acid 1 MG TAB PO SCH (09:55)
[2022-09-24] MEDS: Clopidogrel Bisulfate 75 MG TAB PO SCH (09:55)
[2022-09-24] MEDS: Metoprolol Tartrate 25 MG TAB PO SCH (09:55)
[2022-09-24] MEDS: Flecainide 50 MG TAB PO SCH ×2 (09:55→21:10)
[2022-09-24] MEDS: dilTIAZem 30 MG TAB PO SCH (09:55)
[2022-09-24] MEDS: Bupropion 150 MG SR TAB PO SCH ×2 (14:43→21:10)
[2022-09-24] MEDS ORDERED: Ketorolac Tromethamine 30 MG/ML VIAL IVP SCH (15:00)
[2022-09-24] MEDS ORDERED: cefTRIAXone\\ROCEPHIN 1 GM in Sodium Chloride 0.9% 100 ML IVPB SCH (18:00)
[2022-09-24] MEDS ORDERED: Azithromycin 500 MG in Sodium Chloride 0.9% 250 ML 250 ML IVPB SCH (20:00)
[2022-09-24] MEDS: traZODone HCl 50 MG TAB PO SCH (21:10)
[2022-09-24] MEDS: Rosuvastatin 10 MG TAB PO SCH (21:10)
[2022-09-25 06:07] LABS: ALT (SGPT) 14 U/L (8-55); AST (SGOT) 11 U/L (5-34); Albumin 2.7 g/dL (3.4-4.8); Alkaline Phosphatase 116 U/L (40-110); Anion Gap 11 mmol/L (10-20); BUN (Urea Nitrogen) 23 mg/dL (9.8-20.1); Bilirubin, Total 0.2 mg/dL (0.2-1.2); Calc. Creatinine Clearance 50 mL/min (70-130); Calcium 8.6 mg/dL (7.8-10.44); Carbon Dioxide 23 mmol/L (23-31); Chloride 104 mmol/L (98-107); Estimated GFR 92; Globulin 2.2 g/dL (2.4-3.5); Glucose 82 mg/dL (80-115); Potassium 3.7 mmol/L (3.5-5.1); Protein, Total 4.9 g/dL (5.8-8.1); Sodium 134 mmol/L (136-145)
[2022-09-25 06:38] LABS: #Eosinphils 0.1 thou/uL (0.0-0.7); #Monocytes 0.4 thou/uL (0.11-0.59); #Neutrophils 5.3 thou/uL (1.40-6.50); %Basophils 0.2 % (0.0-1.0); %Lymphocytes 10.6 % (21.0-51.0); %Monocytes 6.5 % (0.0-10.0); %Neutrophils 80.2 % (42.0-75.0); Hematocrit 27.1 % (36.0-47.0); Hemoglobin 7.9 g/dL (12.0-16.0); Mean Corpuscular HGB CONC 29.2 g/dL (32.0-36.0); Mean Corpuscular Volume 99.6 fl (78.0-98.0); Mean Platelet Volume 9.7 fL (7.4-10.4); Platelet Count 221 10x3/uL (130-400); RBC Distribution Width 17.8 % (11.5-14.5); Red Blood Cell (RBC) Count 2.72 mill/uL (4.20-5.40); White Blood Cell (WBC) Count 6.6 10x3/uL (4.8-10.8)
[2022-09-25 06:39] LABS: Manual Diff?? YES
[2022-09-25] MEDS: Bupropion 150 MG SR TAB PO SCH ×2 (08:22→21:26)
[2022-09-25] MEDS: Mometasone 200 MCG/Formoterol 5 MCG 120 PUFF INHALER INH SCH ×2 (08:22→17:41)
[2022-09-25] MEDS: Polyethylene Glycol 3350 17 GM Packet PO SCH ×2 (08:22→21:27)
[2022-09-25] MEDS: predniSONE 20 MG TAB PO SCH (08:23)
[2022-09-25] MEDS: Ipratropium Bromide 2.5 ml Neb NEB SCH ×3 (08:23→17:43)
[2022-09-25] MEDS: Benzonatate 100 MG CAP PO SCH ×3 (08:23→21:26)
[2022-09-25] MEDS: Folic Acid 1 MG TAB PO SCH (08:23)
[2022-09-25] MEDS: Apixaban 5 MG TAB PO SCH ×2 (08:23→21:26)
[2022-09-25] MEDS: Flecainide 50 MG TAB PO SCH ×2 (08:23→21:27)
[2022-09-25] MEDS: busPIRone HCl 5 MG TAB PO SCH ×2 (08:23→21:26)
[2022-09-25] MEDS: Clopidogrel Bisulfate 75 MG TAB PO SCH (08:24)
[2022-09-25 08:47] LABS: Anisocytosis SLIGHT = 6-15 cells HPF (0-5); Band 4 % (5-11); Burr Cells SLIGHT = 2-5 cells HPF (0-1); CellaVision Operator ID LAB.NR; Eosinophils 3 % (0-10); Large Platelets 3.9 % (0-5); Lymphocytes 8 % (21-51); Macrocytosis SLIGHT = 6-15 cells HPF (0-5); Monocytes 6 % (0-10); Neutrophil 79 % (42-75); Platelet Adequacy Comment Platelets Normal; Polychromasia SLIGHT = 2-3 cells HPF (0-2); Smudge Cells 5.9 %; Total Cell Count 102
[2022-09-25] MEDS ORDERED: Azithromycin 250 MG TAB PO SCH (10:30)
[2022-09-25] MEDS ORDERED: Cefdinir 300 MG CAP PO SCH (10:45)
[2022-09-25] MEDS: Morphine ER 15 MG TAB PO SCH ×3 (11:52→21:27)
[2022-09-25] MEDS: tiZANidine HCl 4 MG TAB PO SCH ×2 (15:01→21:26)
[2022-09-25] MEDS ORDERED: Acetaminophen 325 MG TAB PO PRN (15:24)
[2022-09-25] MEDS: traZODone HCl 50 MG TAB PO SCH (21:26)
[2022-09-25] MEDS: Cefdinir 300 MG CAP PO SCH (21:27)
[2022-09-25] MEDS: Rosuvastatin 10 MG TAB PO SCH (21:27)
[2022-09-25] MEDS: Metoprolol Tartrate 25 MG TAB PO SCH (21:27)
[2022-09-25] MEDS: dilTIAZem 30 MG TAB PO SCH (21:27)
[2022-09-26] MEDS: Ipratropium Bromide 2.5 ml Neb NEB SCH ×5 (02:19→22:18)
[2022-09-26 05:46] LABS: #Eosinphils 0.1 thou/uL (0.0-0.7); #Monocytes 0.5 thou/uL (0.11-0.59); #Neutrophils 5.3 thou/uL (1.40-6.50); %Basophils 0.1 % (0.0-1.0); %Eosinophils 2.1 % (0.0-10.0); %Lymphocytes 10.8 % (21.0-51.0); %Monocytes 7.7 % (0.0-10.0); Hematocrit 28.1 % (36.0-47.0); Hemoglobin 8.4 g/dL (12.0-16.0); Mean Corpuscular HGB CONC 29.9 g/dL (32.0-36.0); Mean Corpuscular Hemoglobin 29.6 pg (27.0-31.0); Mean Corpuscular Volume 98.9 fl (78.0-98.0); Mean Platelet Volume 9.5 fL (7.4-10.4); Platelet Count 249 10x3/uL (130-400); RBC Distribution Width 17.2 % (11.5-14.5); Red Blood Cell (RBC) Count 2.84 mill/uL (4.20-5.40); White Blood Cell (WBC) Count 6.8 10x3/uL (4.8-10.8)
[2022-09-26 06:09] LABS: ALT (SGPT) 15 U/L (8-55); AST (SGOT) 12 U/L (5-34); Albumin 2.8 g/dL (3.4-4.8); Alkaline Phosphatase 109 U/L (40-110); Anion Gap 13 mmol/L (10-20); BUN (Urea Nitrogen) 10 mg/dL (9.8-20.1); Bilirubin, Total 0.3 mg/dL (0.2-1.2); Calc. Creatinine Clearance 63 mL/min (70-130); Calcium 8.6 mg/dL (7.8-10.44); Carbon Dioxide 21 mmol/L (23-31); Chloride 103 mmol/L (98-107); Estimated GFR 100; Globulin 2.4 g/dL (2.4-3.5); Glucose 66 mg/dL (80-115); Potassium 3.9 mmol/L (3.5-5.1); Protein, Total 5.2 g/dL (5.8-8.1); Sodium 133 mmol/L (136-145)
[2022-09-26] MEDS: Mometasone 200 MCG/Formoterol 5 MCG 120 PUFF INHALER INH SCH ×2 (07:36→18:55)
[2022-09-26] MEDS: Azithromycin 250 MG TAB PO SCH (08:27)
[2022-09-26] MEDS: Metoprolol Tartrate 25 MG TAB PO SCH ×2 (08:27→20:39)
[2022-09-26] MEDS: Losartan 25 MG TAB PO SCH (08:27)
[2022-09-26] MEDS: busPIRone HCl 5 MG TAB PO SCH ×2 (08:27→20:39)
[2022-09-26] MEDS: tiZANidine HCl 4 MG TAB PO SCH ×3 (08:27→20:39)
[2022-09-26] MEDS: Amlodipine 5 MG TAB PO SCH (08:27)
[2022-09-26] MEDS: predniSONE 20 MG TAB PO SCH (08:27)
[2022-09-26] MEDS: Bupropion 150 MG SR TAB PO SCH ×2 (08:27→20:39)
[2022-09-26] MEDS: Apixaban 5 MG TAB PO SCH ×2 (08:27→20:39)
[2022-09-26] MEDS: Clopidogrel Bisulfate 75 MG TAB PO SCH (08:28)
[2022-09-26] MEDS: Folic Acid 1 MG TAB PO SCH (08:28)
[2022-09-26] MEDS: Polyethylene Glycol 3350 17 GM Packet PO SCH ×2 (08:28→20:39)
[2022-09-26] MEDS: dilTIAZem 30 MG TAB PO SCH ×2 (08:28→20:39)
[2022-09-26] MEDS: Benzonatate 100 MG CAP PO SCH ×3 (08:28→20:39)
[2022-09-26] MEDS: Flecainide 50 MG TAB PO SCH ×2 (08:28→20:38)
[2022-09-26] MEDS: Morphine ER 15 MG TAB PO SCH ×3 (08:28→20:38)
[2022-09-26] MEDS: Cefdinir 300 MG CAP PO SCH ×2 (08:28→20:38)
[2022-09-26] MEDS: traZODone HCl 50 MG TAB PO SCH (20:39)
[2022-09-26] MEDS: Rosuvastatin 10 MG TAB PO SCH (20:39)
[2022-09-27 04:55] LABS: #Eosinphils 0.2 thou/uL (0.0-0.7); #Monocytes 0.4 thou/uL (0.11-0.59); #Neutrophils 2.8 thou/uL (1.40-6.50); %Basophils 0.2 % (0.0-1.0); %Eosinophils 4.1 % (0.0-10.0); %Lymphocytes 17.1 % (21.0-51.0); %Monocytes 10.6 % (0.0-10.0); %Neutrophils 67.5 % (42.0-75.0); Hematocrit 28.9 % (36.0-47.0); Hemoglobin 8.5 g/dL (12.0-16.0); Mean Corpuscular HGB CONC 29.4 g/dL (32.0-36.0); Mean Corpuscular Hemoglobin 28.2 pg (27.0-31.0); Mean Platelet Volume 9.5 fL (7.4-10.4); Platelet Count 273 10x3/uL (130-400); RBC Distribution Width 17.1 % (11.5-14.5); Red Blood Cell (RBC) Count 3.01 mill/uL (4.20-5.40); White Blood Cell (WBC) Count 4.2 10x3/uL (4.8-10.8)
[2022-09-27 05:14] LABS: ALT (SGPT) 15 U/L (8-55); AST (SGOT) 11 U/L (5-34); Albumin 2.9 g/dL (3.4-4.8); Alkaline Phosphatase 102 U/L (40-110); Anion Gap 10 mmol/L (10-20); BUN (Urea Nitrogen) 9 mg/dL (9.8-20.1); Bilirubin, Total 0.3 mg/dL (0.2-1.2); Calc. Creatinine Clearance 65 mL/min (70-130); Calcium 8.9 mg/dL (7.8-10.44); Carbon Dioxide 27 mmol/L (23-31); Chloride 102 mmol/L (98-107); Estimated GFR 101; Globulin 2.6 g/dL (2.4-3.5); Glucose 69 mg/dL (80-115); Potassium 4.2 mmol/L (3.5-5.1); Protein, Total 5.5 g/dL (5.8-8.1); Sodium 135 mmol/L (136-145)
[2022-09-27] MEDS: Ipratropium Bromide 2.5 ml Neb NEB SCH ×2 (07:26→13:36)
[2022-09-27] MEDS: Albuterol 200 PUFF (6.7GM INHALER) INH PRN ×2 (07:26→13:36)
[2022-09-27] MEDS: Mometasone 200 MCG/Formoterol 5 MCG 120 PUFF INHALER INH SCH (07:26)
[2022-09-27] MEDS: Apixaban 5 MG TAB PO SCH (08:13)
[2022-09-27] MEDS: Metoprolol Tartrate 25 MG TAB PO SCH (08:13)
[2022-09-27] MEDS: Cefdinir 300 MG CAP PO SCH (08:13)
[2022-09-27] MEDS: dilTIAZem 30 MG TAB PO SCH (08:13)
[2022-09-27] MEDS: Polyethylene Glycol 3350 17 GM Packet PO SCH (08:13)
[2022-09-27] MEDS: busPIRone HCl 5 MG TAB PO SCH (08:13)
[2022-09-27] MEDS: Flecainide 50 MG TAB PO SCH (08:13)
[2022-09-27] MEDS: Clopidogrel Bisulfate 75 MG TAB PO SCH (08:13)
[2022-09-27] MEDS: tiZANidine HCl 4 MG TAB PO SCH ×2 (08:13→14:35)
[2022-09-27] MEDS: Azithromycin 250 MG TAB PO SCH (08:13)
[2022-09-27] MEDS: Benzonatate 100 MG CAP PO SCH ×2 (08:13→14:35)
[2022-09-27] MEDS: Losartan 25 MG TAB PO SCH (08:13)
[2022-09-27] MEDS: Amlodipine 5 MG TAB PO SCH (08:13)
[2022-09-27] MEDS: Morphine ER 15 MG TAB PO SCH ×2 (08:14→14:35)
[2022-09-27] MEDS: Bupropion 150 MG SR TAB PO SCH (08:14)
[2022-09-27] MEDS: predniSONE 20 MG TAB PO SCH (08:14)
[2022-09-27] MEDS: Folic Acid 1 MG TAB PO SCH (08:14)
[2022-09-27] MEDS ORDERED: cefTRIAXone\\ROCEPHIN 2 GM in Sodium Chloride 0.9% 100 ML IVPB SCH (10:57)
[2022-09-27 15:15] VITALS: BP 154/70; TEMP 98.6
== END 2022-09-27 16:47 | disposition home health service (06) | DRG 177 ==
LOC: ERS 16:40 → 2NO 20:26 → OBSVTOIN 09-24 00:24
PROVIDERS: ADMIT Student in an Organized Health Care Education/Training Program; ATTEND Student in an Organized Health Care Education/Training Program
DX: J15.6 Pneumonia due to other Gram-negative bacteria (principal); G93.41 Metabolic encephalopathy; C34.90 Malignant neoplasm of unspecified part of unspecified bronchus or lung; E87.1 Hypo-osmolality and hyponatremia; N39.0 Urinary tract infection, site not specified; J44.0 Chronic obstructive pulmonary disease with (acute) lower respiratory infection; Z51.5 Encounter for palliative care; D64.9 Anemia, unspecified; K59.00 Constipation, unspecified; I10 Essential (primary) hypertension; Z66 Do not resuscitate; F41.9 Anxiety disorder, unspecified; F32.A Depression, unspecified; G43.909 Migraine, unspecified, not intractable, without status migrainosus; I48.91 Unspecified atrial fibrillation; I25.10 Atherosclerotic heart disease of native coronary artery without angina pectoris; E78.5 Hyperlipidemia, unspecified; Z91.09 Other allergy status, other than to drugs and biological substances; Z91.040 Latex allergy status; Z88.1 Allergy status to other antibiotic agents; Z79.899 Other long term (current) drug therapy; Z79.02 Long term (current) use of antithrombotics/antiplatelets; Z79.52 Long term (current) use of systemic steroids; Z90.710 Acquired absence of both cervix and uterus; Z90.49 Acquired absence of other specified parts of digestive tract; Z98.1 Arthrodesis status; Z87.891 Personal history of nicotine dependence; Z82.49 Family history of ischemic heart disease and other diseases of the circulatory system; Z82.3 Family history of stroke; Z83.3 Family history of diabetes mellitus; Z80.3 Family history of malignant neoplasm of breast; L89.152 Pressure ulcer of sacral region, stage 2; Z20.822 Contact with and (suspected) exposure to COVID-19; B96.20 Unspecified Escherichia coli [E. coli] as the cause of diseases classified elsewhere
CPT/HCPCS: 36415; 51701; 71045; 80053; 81001; 83605; 84145; 84484; 85025; 87040; 87070; 87077; 87081; 87086; 87186; 87205; 93005; 94640; 96365; 96366; 96367; J0456; J0696; J1885; J3490; J7050; J7512